=== PATIENT | female | born 1950 | race Caucasian/White ===

== ENCOUNTER 2017-07-07 10:58 | Outpatient (CLI) | payer MEDICARE, BC ==
[2017-07-07 12:40] LABS: Hemoglobin 13.9 g/dL (12.0-16.0); Mean Corpuscular HGB CONC 32.2 g/dL (32.0-36.0); Mean Corpuscular Hemoglobin 30.3 pg (27.0-31.0); Mean Corpuscular Volume 94.3 fl (81.0-99.0); Mean Platelet Volume 7.6 fL (7.4-10.4); Platelet Count 270 thou/uL (130-400); RBC Distribution Width 11.9 % (11.5-14.5); Red Blood Cell (RBC) Count 4.59 mill/uL (4.20-5.40); White Blood Cell (WBC) Count 5.4 thou/uL (4.8-10.8)
[2017-07-07 12:47] LABS: PTT 27.9 SEC (22.9-36.1)
[2017-07-07 12:51] LABS: INR-International Normal Ratio 0.9; Prothrombin Time 12.5 SEC (12.0-14.7)
[2017-07-07 13:01] LABS: Anion Gap 12 mmol/L (10-20); BUN (Urea Nitrogen) 15 mg/dL (9.8-20.1); Calc. Creatinine Clearance 0 mL/min (70-130); Calcium 9.9 mg/dL (7.8-10.44); Carbon Dioxide 27 mmol/L (23-31); Chloride 103 mmol/L (98-107); Estimated GFR-MDRD 54; Glucose 89 mg/dL (80-115); Sodium 138 mmol/L (136-145)
--- NOTE | 2017-07-15 19:32 | EKG ---
Test Reason : Blood Pressure : / mmHG Vent. Rate : 063 BPM Atrial Rate : 063 BPM P-R Int : 136 ms QRS Dur : 084 ms QT Int : 396 ms P-R-T Axes : 067 023 -43 degrees QTc Int : 405 ms Normal sinus rhythm T wave abnormality, consider inferolateral ischemia Abnormal ECG When compared with ECG of 27-JUN-2010 12:16, T wave inversion now evident in Inferior leads T wave inversion no longer evident in Anterior leads T wave inversion now evident in Lateral leads Confirmed by KIRILL TRAVIS (2) on 07/15/2017 7:32:02 PM Referred By: NAVID Confirmed By:KIRILL TRAVIS
== END 2017-07-07 10:59 | disposition home or self-care (01) ==
LOC: LABBT 10:58
PROVIDERS: ATTEND Surgery
DX: Z01.818 Encounter for other preprocedural examination (principal); M54.16 Radiculopathy, lumbar region; M48.061 Spinal stenosis, lumbar region without neurogenic claudication
CPT/HCPCS: 80048; 85027; 85610; 85730; 93005; 93010

== ENCOUNTER 2017-07-13 08:24 | Day surgery (SDC) | payer MEDICARE, BC ==
[2017-07-07 11:34] VITALS: BMI 23.6
[2017-07-13] MEDS ORDERED: CEFAZOLIN/Water 2 GM/20 ML SYRINGE ONE (08:58)
[2017-07-13] MEDS ORDERED: Bacitracin Zinc Ointment 30 gm TUBE ONE (10:03)
[2017-07-13] MEDS ORDERED: Sodium Chloride 0.9% 10 ML ONE (10:03)
[2017-07-13] MEDS ORDERED: Thrombin 5000 UNITS/5 ML VIAL ONE (10:03)
[2017-07-13] MEDS ORDERED: Fentanyl 250 MCG/5 ML VIAL ONE (10:17)
[2017-07-13] MEDS ORDERED: Albuterol Sulfate HFA (OR ONLY) ONE (10:22)
[2017-07-13] MEDS ORDERED: Midazolam HCl 2 mg/2 ml Vial ONE ×2 (10:25→12:49)
[2017-07-13] MEDS ORDERED: HYDROmorphone 2 MG/ML VIAL SLOW IVP PRN (11:03)
[2017-07-13] MEDS ORDERED: Ondansetron HCl/PF 4 MG/2 ML Vial IVP PRN ×2 (11:03→12:56)
[2017-07-13] MEDS ORDERED: Morphine Sulfate 2 MG/ML SYRINGE SLOW IVP PRN (11:03)
[2017-07-13] MEDS ORDERED: Fentanyl 100 MCG/2 ML VIAL ONE ×3 (12:47→14:21)
[2017-07-13] MEDS ORDERED: Acetaminophen 325 MG TAB PO PRN (12:56)
[2017-07-13] MEDS ORDERED: Acetaminophen/Codeine 30-300mg Tablet PO PRN (12:56)
[2017-07-13] MEDS ORDERED: tiZANidine HCl 4 MG TAB PO PRN (12:56)
[2017-07-13] MEDS ORDERED: Fleet Enema 133 ML BOT PR PRN (12:56)
[2017-07-13] MEDS ORDERED: Mag-Al 1200 mg/1200 mg/30 ML UDCUP PO PRN (12:56)
[2017-07-13] MEDS ORDERED: Milk Of Magnesia 30 ML UDCUP PO PRN (12:56)
[2017-07-13] MEDS ORDERED: Bisacodyl 10 MG SUPP PR PRN (12:56)
[2017-07-13] MEDS: Sodium Chloride 0.9% 1,000 ML IV SCH (14:56)
--- NOTE | 2017-07-13 15:12 | OP ---
OR: 12 SURGEON: Dominic Ahuja M.D. SEISMIC PROSPECTING OBSERVER: Pepe Bal PA-C. PREPROCEDURE DIAGNOSES: Multilevel lumbar stenosis with left-sided S1 radiculopathy as well with his tory of right-sided L5-S1 surgery at outside institution. POSTPROCEDURE DIAGNOSES: Multilevel lumbar stenosis with left-sided S1 radiculopathy as well with hi story of right-sided L5-S1 surgery at outside institution. PROCEDURE PERFORMED: 1. L3-L4, L4-L5 laminectomies, partial facetectomies and foraminotomies over the L3, L4, L5 nerve ro ots. 2. Left L5-S1 hemilaminotomy, foraminotomy for decompression of left S1 nerve root. DESCRIPTION OF PROCEDURE: After informed consent was obtained from the patient, the patient brought to OR 12. Proper patient pause and identification was carried out. She was placed under excellent g eneral endotracheal anesthesia and positioned prone on the operating room table. All appropriate poi nts were padded. We identified the prior midline L5-S1 wound and this region was sterilely cleansed, prepared, and draped. The wound was drawn out and extended superiorly to encompass the L3-L5 segmen ts. This region was sterilely cleansed, prepared, and draped and proper patient pause and identifica tion was carried out. The wound was then opened with a combination of sharp, monopolar and blunt dis section, and the L3, L4, L5, and left-sided L5-S1 segments were exposed. Localization film confirmed our area of interest. We then performed an L3, L4, and L4-L5 laminectomies, partial facetectomies a nd foraminotomies with excellent decompression of the L3, L4, and L5 nerve roots bilaterally. Then w orking over the left L5-S1 segment hemilaminotomy, foraminotomy was performed. I did not feel it nec essary to remove any disk material. We had excellent decompression at the conclusion of the surgery of the L3, L4, and L5 nerve roots bilaterally and the left S1 nerve root. She had prior right L5-S1 surgery. Copious irrigation occurred. Hemostasis was maximized throughout. The wound was then clos ed in anatomic layers. There was no CSF leak and the patient then emerged from anesthesia.
[2017-07-13] MEDS ORDERED: Ondansetron HCl/PF 4 MG/2 ML Vial ONE (15:37)
[2017-07-13] MEDS ORDERED: Glycopyrrolate 0.2 MG/ML 5 ML SYRINGE ONE (15:37)
[2017-07-13] MEDS ORDERED: Vecuronium 10 MG VIAL ONE (15:37)
[2017-07-13] MEDS ORDERED: Lidocaine 1% PF 5 ML VIAL ONE (15:37)
[2017-07-13] MEDS ORDERED: PHENYLEPHRINE-NS 100 MCG/ML 10 ML SYRINGE ONE (15:37)
[2017-07-13] MEDS ORDERED: Dexamethasone 20 MG/5 ML VIAL ONE (15:37)
[2017-07-13] MEDS ORDERED: ePHEDrine/0.9% NaCl/PF SYRINGE 50 mg/10 ml ONE (15:37)
[2017-07-13] MEDS ORDERED: Propofol 200 MG/20 ML VIAL ONE (15:37)
[2017-07-13] MEDS ORDERED: tiZANidine HCl 4 MG TAB ONE (15:53)
[2017-07-13] MEDS ORDERED: Morphine 5 mg/5 ml in 0.9% NaCl/PF SYRINGE SLOW IVP PRN (17:32)
[2017-07-13] MEDS: CEFAZOLIN/Water 2 GM/20 ML SYRINGE SLOW IVP SCH (17:41)
[2017-07-13] MEDS: HYDROcodone/Acetaminophen 7.5/325 mg Tablet PO PRN ×2 (18:49→22:58)
[2017-07-13] MEDS ORDERED: Gabapentin 300 MG CAP PO SCH (21:00)
[2017-07-13] MEDS ORDERED: traZODone HCl 50 MG TAB PO SCH (21:00)
[2017-07-13] MEDS ORDERED: Atorvastatin Calcium 20 MG TAB PO SCH (21:00)
[2017-07-14] MEDS: CEFAZOLIN/Water 2 GM/20 ML SYRINGE SLOW IVP SCH (01:05)
[2017-07-14] MEDS: traMADol HCl 50 MG TAB PO PRN ×2 (03:09→09:14)
[2017-07-14] MEDS: Sodium Chloride 0.9% 1,000 ML IV SCH (04:41)
[2017-07-14 07:58] VITALS: BP 93/62; TEMP 98.3
[2017-07-14] MEDS ORDERED: Multivit, Therapeutic 1 TAB PO SCH (09:00)
[2017-07-14] MEDS ORDERED: MSM PO SCH (09:00)
[2017-07-14] MEDS ORDERED: CHONDROITIN A PO SCH (09:00)
[2017-07-14] MEDS ORDERED: Loratadine 10 MG TAB PO SCH (09:00)
[2017-07-14] MEDS ORDERED: GLUCOSAMINE PO SCH (09:00)
--- NOTE | 2017-07-14 09:10 | PRG ---
DATE OF SERVICE: 07/14/2017 Ms. Bowie is doing on postoperative day 1 from lumbar decompression. We went over intraoperative an d postoperative issues and she is already ambulating with improvement in her leg pain. We will plan on dismissal.
== END 2017-07-14 09:41 | disposition home or self-care (01) ==
LOC: SDC 08:24 → 3SE 13:23 → SDC 07-14 09:41
PROVIDERS: ATTEND Surgery
PROC: 0ST20ZZ Resection of Lumbar Vertebral Disc, Open Approach (ICD-10-PCS; principal; 2017-07-13)
PROC: 01NB0ZZ Release Lumbar Nerve, Open Approach (ICD-10-PCS; 2017-07-13)
DX: M48.061 Spinal stenosis, lumbar region without neurogenic claudication (principal); M54.16 Radiculopathy, lumbar region; Z79.899 Other long term (current) drug therapy; Z88.8 Allergy status to other drugs, medicaments and biological substances; Z91.048 Other nonmedicinal substance allergy status; Z98.890 Other specified postprocedural states; Z90.710 Acquired absence of both cervix and uterus
CPT/HCPCS: 76001; 96374; A4216; J1100; J2001; J2250; J2270; J2405; J2704; J3010; J3370; J3490

== ENCOUNTER 2017-12-02 12:28 | Outpatient (CLI) | payer MEDICARE, BC | END 2017-12-02 12:29 | disposition home or self-care (01) | LOC: BICMAMMO 12:28 | PROVIDERS: ATTEND Obstetrics & Gynecology | DX: R92.8 Other abnormal and inconclusive findings on diagnostic imaging of breast (principal) | CPT/HCPCS: 77066; G0279 ==

== ENCOUNTER 2018-03-09 08:49 | Observation (INO) | payer MEDICARE, BC ==
[2018-03-09] MEDS ORDERED: Nitroglycerin 2% Ointment 1 INCH/1 GM Packet ONE (09:05)
[2018-03-09 09:18] LABS: #Eosinphils 0.1 thou/uL (0.0-0.7); #Lymphocytes 0.8 thou/uL (1.20-3.40); #Monocytes 0.4 thou/uL (0.11-0.59); #Neutrophils 7.1 thou/uL (1.40-6.50); %Basophils 0.4 % (0.0-1.0); %Eosinophils 1.4 % (0.0-10.0); %Lymphocytes 9.3 % (21.0-51.0); %Monocytes 4.2 % (0.0-10.0); %Neutrophils 84.8 % (42.0-75.0); Hemoglobin 15.7 g/dL (12.0-16.0); Mean Corpuscular HGB CONC 32.5 g/dL (32.0-36.0); Mean Corpuscular Hemoglobin 29.4 pg (27.0-31.0); Mean Corpuscular Volume 90.4 fL (78.0-98.0); Mean Platelet Volume 8.1 fL (7.4-10.4); Platelet Count 238 thou/uL (130-400); RBC Distribution Width 11.1 % (11.5-14.5); Red Blood Cell (RBC) Count 5.35 mill/uL (4.20-5.40); White Blood Cell (WBC) Count 8.4 thou/uL (4.8-10.8)
[2018-03-09 09:29] LABS: ALT (SGPT) 20 U/L (8-55); AST (SGOT) 19 U/L (5-34); Albumin 4.3 g/dL (3.4-4.8); Alkaline Phosphatase 62 U/L (40-150); Anion Gap 12 mmol/L (10-20); BUN (Urea Nitrogen) 14 mg/dL (9.8-20.1); Bilirubin, Total 0.7 mg/dL (0.2-1.2); Calc. Creatinine Clearance 0 mL/min (70-130); Calcium 9.8 mg/dL (7.8-10.44); Carbon Dioxide 27 mmol/L (23-31); Chloride 105 mmol/L (98-107); Estimated GFR-MDRD 75; Globulin 2.5 g/dL (2.4-3.5); Glucose 119 mg/dL (80-115); Lipase 26 U/L (8-78); Protein, Total 6.8 g/dL (6.0-8.3); Sodium 140 mmol/L (136-145)
[2018-03-09 09:31] LABS: CKMB 0.6 ng/mL (0-6.6); Troponin I Less than 0.010 ng/mL (< 0.028)
[2018-03-09] MEDS ORDERED: Lidocaine Viscous Sol 2% 15 ml UD Cup ONE (09:47)
[2018-03-09] MEDS ORDERED: Mag-Al Plus 1200 MG/1200 MG/120 MG/30 ML UDCUP ONE (09:47)
--- NOTE | 2018-03-09 09:55 | RAD ---
PORTABLE CHEST ONE VIEW: History: 68-year-old female with history of chest pain and epigastric pain with pain radiating into the jaw an d arm. FINDINGS: Heart size is within normal limits. The lungs are clear. No pneumonia, edema, or pleural effusion. IMPRESSION: No acute intrathoracic disease. Stable from prior study. Atherosclerosis of the aorta. POS: [facility]
[2018-03-09] MEDS ORDERED: Ibuprofen 200 MG TAB ONE (10:40)
[2018-03-09 12:22] LABS: Troponin I Less than 0.010 ng/mL (< 0.028)
[2018-03-09] MEDS ORDERED: Ondansetron ODT 4 MG TAB PO PRN (12:44)
[2018-03-09] MEDS ORDERED: Ondansetron HCl/PF 4 MG/2 ML Vial IVP PRN ×2 (12:44→13:23)
[2018-03-09 12:56] VITALS: BMI 25.0
[2018-03-09] MEDS ORDERED: Nitroglycerin 0.4 MG TAB (25 Tab Bottle) PO PRN (13:21)
[2018-03-09] MEDS ORDERED: Mag-Al 1200 mg/1200 mg/30 ML UDCUP PO PRN (13:23)
[2018-03-09] MEDS ORDERED: Milk Of Magnesia 30 ML UDCUP PO PRN (13:23)
[2018-03-09] MEDS ORDERED: Loperamide HCl 2 MG CAP PO PRN (13:23)
[2018-03-09] MEDS ORDERED: Acetaminophen 325 MG TAB PO PRN (13:23)
[2018-03-09] MEDS ORDERED: Senokot 8.6 MG TAB PO PRN (13:23)
[2018-03-09] MEDS ORDERED: Zolpidem Tartrate 5 MG TAB PO PRN (13:23)
--- NOTE | 2018-03-09 13:47 | SS ---
PRIMARY CARE PHYSICIAN: Yazan Self M.D. REASON FOR ADMISSION: Chest pain. HISTORY OF PRESENT ILLNESS: A 68-year-old female who has underlying history of hypertension and dyslipidemia, who presented to emergency room at [place] with the complaint of chest pain. The patient reports that last night she was having liquidy diarrhea several times. She started diarrhea at 2:00 a.m. until 7:00 a.m. She had several times liquidy diarrhea with lower abdominal crampy discomfort. During that period, the patient was also having chest pain, which was substernal and epigastric location. Chest pain was radiating to left shoulder as well as right ear. She was feeling dull ache and pressure sensation. She denies any vomiting, but she was feeling nauseated. She did not have any diaphoresis, palpitation, dizziness or syncope. She did not have any fever or chills. There was no relation of chest pain with food, respiration or activity. She denies any exertional related chest pain, palpitation. She denies any similar problem in past. The patient reports that for last several months, she was intermittently feeling chest tightness, which she was attributing to her grief sensation after her daughter who from a motor accident in May. She did not have any cardiac workup done recently. She reports that more than 2 years ago her primary care physician did a treadmill stress test in his office, which was reportedly normal. The patient was evaluated at the [place] emergency room where her electrocardiogram was normal. Routine blood tests including CBC, BMP and cardiac enzymes were negative. The patient is transferred to our hospital for rule out acute coronary syndrome. REVIEW OF SYSTEMS: The following complete review of systems was negative, unless otherwise mentioned in the HPI or below: Constitutional: Weight loss or gain, ability to conduct usual activities. Skin: Rash, itching. Eyes: Double vision, pain. ENT/Mouth: Nose bleeding, neck stiffness, pain, tenderness. Cardiovascular: Palpitations, dyspnea on exertion, orthopnea. Respiratory: Shortness of breath, wheezing, cough, hemoptysis, fever or night sweats. Gastrointestinal: Poor appetite, abdominal pain, heartburn, nausea, vomiting, constipation, or diarrhea. Genitourinary: Urgency, frequency, dysuria, nocturia. Musculoskeletal: Pain, swelling. Neurologic/Psychiatric: Anxiety, depression. Allergy/Immunologic: Skin rash, bleeding tendency. Please see my HPI for pertinent positive and negative. All other review of systems reviewed and negative except as mentioned in the HPI. PAST MEDICAL HISTORY: History of hypertension. The patient was on a couple of different antihypertensive medications, but she is no longer taking blood pressure medications since she lost 40-pound weight intentionally. Dyslipidemia , on statin therapy. Asthma, mild, intermittent. Osteoarthritis. PAST SURGICAL HISTORY: Lump removed from back, hysterectomy. PAST PSYCHIATRIC HISTORY: Anxiety and depression. SOCIAL HISTORY: The patient is and lives at home with her . No history of tobacco, alcohol or illicit drug abuse. FAMILY HISTORY: Strongly positive for coronary artery disease to her brothers as well as mother. One brother had early CABG as well as one brother had several stent and mother diagnosed with a CAD as well. Her mother is . ALLERGIES: COMPAZINE. CURRENT HOME MEDICATIONS: Trazodone 100 mg p.o. daily, Zocor 40 mg p.o. at bedtime, aspirin 81 mg p.o. daily, Xanax 1 mg p.o. daily, Centrum Silver 1 tablet p.o. daily, gabapentin 300 mg p.o. daily, glucosamine sulfate 1000 mg p.o. daily, cetirizine 10 mg p.o. daily. EMERGENCY ROOM COURSE: The patient was given morphine, IV fluid, GI cocktail, Motrin 400 mg, nitropatch and aspirin. PHYSICAL EXAMINATION: VITAL SIGNS: On arrival, blood pressure 172/88, pulse 92, respiratory rate 20, temperature 98.2, saturation 96% on room air, weight 66.8 kilograms. GENERAL: The patient is currently alert, oriented, in no acute distress. HEAD: Normocephalic, atraumatic. EYES: Pupils round and reactive to light. Extraocular muscle intact. ENT: Oropharynx within normal limits. Moist mucous membrane. No oral lesion, no pharyngeal erythema, no exudate. NECK: Supple. No JVD, no thyromegaly, no carotid bruit. No jugular venous distention. LUNGS: Clear to auscultation without any rhonchi or rales. CARDIAC: S1, S2 regular. No murmur, no gallop, no rub. ABDOMEN: Soft, bowel sounds present, nontender, nondistended. No organomegaly , no mass, no suprapubic tenderness. BACK: Unremarkable. No CVA tenderness. EXTREMITIES: Upper extremities, passive movement of all joints are normal. Lower extremities, no edema, no calf tenderness. Good distal pulsation. SKIN: No skin rash. HEMATOLOGIC: No lymphadenopathy. PSYCHIATRIC: Normal affect. NEUROLOGIC: Nonfocal examination. SIGNIFICANT LABORATORY DATA: EKG showing normal sinus rhythm, Q-wave in lead III and AVF. Chest x-ray based on my review, no acute cardiopulmonary process. CBC, WBC 8.4, hemoglobin 15.7, platelet 238,000. BMP, sodium 140, potassium 4.0, chloride 105, carbon dioxide 27, anion gap 12, BUN 14, creatinine 0.76, glucose 119, calcium 9.8. LFT, AST 19, ALT 20, alkaline phosphatase 62, albumin 4.3, lipase 26. Cardiac enzymes negative x3. ASSESSMENT AND PLAN: 1. Chest pain, recurrent. Current chest pain description is atypical. She has 3 risk factors for coronary artery disease. Based on that risk factor profile, her probability of coronary artery disease is moderate. The patient will need further evaluation. Her electrocardiogram is negative and her cardiac enzyme are negative. We will do stress test today if possible. The patient already received aspirin in the emergency room and currently the patient is chest pain free. If stress test is negative, then we will consider discharging her home later on today. In that case, the patient will need to continue Pepcid 20 mg p.o. b.i.d. [id number] basis. 2. Hypertension, was high when she went to emergency room because of stress, but currently blood pressure is well controlled. The patient is advised to follow with primary care physician. 3. Dyslipidemia. Continue Zocor 40 mg p.o. at bedtime. 4. Anxiety and depression. Continue Xanax 0.5 mg p.o. at bedtime, trazodone 100 mg p.o. at bedtime. 5. Deep venous thrombosis prophylaxis not needed because we are expecting discharge in 24 hours. 6. Gastrointestinal prophylaxis, Pepcid 20 mg p.o. b.i.d. 7. Code status: The patient is full code. The patient's is surrogate decision maker. Disposition plan based on stress test result, likely within 24 hours, maybe possibly today. DATE OF ADMISSION: 03/09/2018 DATE OF DISCHARGE: 03/09/2018 DISCHARGE DISPOSITION: Home. PRIMARY DISCHARGE DIAGNOSIS: Chest pain, ruled out acute coronary syndrome. SECONDARY DISCHARGE DIAGNOSES: Hypertension, dyslipidemia, anxiety and depression. PRIMARY PROCEDURES/OPERATIONS: None. RADIOLOGICAL INVESTIGATION: Chest x-ray is normal. Stress test is pending. SIGNIFICANT LABORATORY DATA: Please see above. DISCHARGE PLAN: Post hospital, the patient will follow with primary care physician in 1 week. HOSPITAL COURSE: Please see my HPI. This patient was transferred from [place] ER for chest pain workup. Her chest pain description was atypical. Her probability of coronary artery disease was low to moderate and that is why we did stress test to rule out underlying ischemia. If stress test is negative , then the patient is medically stable for discharge later on today. STRESS TEST REVIEWED AND NEGATIVE, RESULT DISCUSSED TO PT JORDAN
--- NOTE | 2018-03-09 16:24 | NM ---
NUCLEAR MEDICINE CARDIAC MYOCARDIAL PERFUSION SPECT EJECTION FRACTION STUDY WALL MOTION CINE: 03/09/18 HISTORY: 68-year-old female with dyslipidemia presents with chest pain. TECHNIQUE: Number of days: One Rest study: Tc99m sestamibi (Cardiolite) dose: 11.0 mCi Exercise stress: treadmill. Stress study: Tc99m sestamibi (Cardiolite) dose: 32.3 mCi FINDINGS: CARDIAC (MYOCARDIAL PERFUSION) SPECT There are no reversible myocardial perfusion defects. EJECTION FRACTION STUDY EF = 77% WALL MOTION CINE Normal. IMPRESSION: No evidence of reversible ischemia. ELTON Catalan POS: [facility]
[2018-03-09 17:31] LABS: Cardiac Risk 2.4 (Less than 4.5)
[2018-03-09 17:32] LABS: Troponin I Less than 0.010 ng/mL (< 0.028)
[2018-03-09 19:10] VITALS: BP 146/77; TEMP 98.8
[2018-03-09] MEDS ORDERED: Simvastatin 40 MG TAB PO SCH (21:00)
[2018-03-09] MEDS ORDERED: Gabapentin 300 MG CAP PO SCH ×2 (21:00)
[2018-03-09] MEDS ORDERED: Famotidine 20 MG TAB PO SCH (21:00)
[2018-03-09] MEDS ORDERED: ALPRAZolam 0.5 MG TAB PO SCH (21:00)
[2018-03-09] MEDS ORDERED: Atorvastatin Calcium 20 MG TAB PO SCH (21:00)
[2018-03-09] MEDS ORDERED: Non-Formulary Item 1 EACH (Trazodone Hcl [Trazodone Hcl] 1 TAB) PO SCH (21:00)
[2018-03-10] MEDS ORDERED: Loratadine 10 MG TAB PO SCH (09:00)
[2018-03-10] MEDS ORDERED: GLUCOSAMINE CHONDROITIN MSM PO SCH (09:00)
[2018-03-10] MEDS ORDERED: Cetirizine HCl 10 MG TAB PO SCH (09:00)
[2018-03-10] MEDS ORDERED: Aspirin 325 MG TAB PO SCH (09:00)
[2018-03-10] MEDS ORDERED: Non-Formulary Item 1 EACH (Multivitamin [Multi-Vitamin Daily] 1 TAB) PO SCH (09:00)
[2018-03-10] MEDS ORDERED: Multivit, Therapeutic 1 TAB PO SCH (09:00)
== END 2018-03-09 21:00 | disposition home or self-care (01) ==
LOC: SCSER 08:49 → 2SW 12:02
PROVIDERS: ADMIT Internal Medicine; ATTEND Internal Medicine
DX: R07.89 Other chest pain (principal); I10 Essential (primary) hypertension; E78.5 Hyperlipidemia, unspecified; F41.8 Other specified anxiety disorders; Z88.8 Allergy status to other drugs, medicaments and biological substances; Z79.82 Long term (current) use of aspirin; Z79.02 Long term (current) use of antithrombotics/antiplatelets; Z79.899 Other long term (current) drug therapy
CPT/HCPCS: 71045; 78452; 80053; 80061; 82553; 83690; 84484 ×2; 85025; 93005; 93017; 94760; 96361; 96374; 96375; 99285; A9500; 36415; J2270; J2405

== ENCOUNTER 2018-12-06 15:10 | Outpatient (CLI) | payer MEDICARE, BC ==
--- NOTE | 2018-12-06 16:03 | MMO ---
Bilateral MAMMO Bilat Screen [facility]DI+BUD. CLINICAL HISTORY: Patient is 68 years old and is seen for screening. The patient has no family history of breast cancer. The patient has no personal history of cancer. The patient has a history of right Ultrasound Guided Core Biopsy in September,. VIEWS: The views performed were: bilateral craniocaudal with tomosynthesis and bilateral mediolateral oblique with tomosynthesis. FILMS COMPARED: The present examination has been compared to prior imaging studies performed at [facility] on 03/12/2015, 09/16/2016, 09/18/2016 and 12/02/2017. MAMMOGRAM FINDINGS: There are scattered fibroglandular densities. Finding 1: There are stable benign appearing calcifications seen in both breasts. Finding 2: There are stable focal asymmetries seen in both breasts. Finding 3: There is a stable biopsy clip seen in the right breast. There are no suspicious masses, suspicious calcifications, or new areas of architectural distortion. IMPRESSION: THERE IS NO MAMMOGRAPHIC EVIDENCE OF MALIGNANCY. A ROUTINE FOLLOW-UP MAMMOGRAM IN 1 YEAR IS RECOMMENDED. THE RESULTS OF THIS EXAM WERE SENT TO THE PATIENT. ACR BI-RADS Category 2 - Benign finding MAMMOGRAPHY NOTE: 1. A negative mammogram report should not delay a biopsy if a dominant of clinically suspicious mass is present. 2. Approximately 10% to 15% of breast cancers are not detected by mammography. 3. Adenosis and dense breasts may obscure an underlying neoplasm.
== END 2018-12-06 15:11 | disposition home or self-care (01) ==
LOC: BICMAMMO 15:10
PROVIDERS: ATTEND Obstetrics & Gynecology
DX: Z12.31 Encounter for screening mammogram for malignant neoplasm of breast (principal)
CPT/HCPCS: 77063; 77067

== ENCOUNTER 2020-01-02 14:17 | Outpatient (CLI) | payer MEDICARE, BC ==
--- NOTE | 2020-01-02 16:21 | MMO ---
Bilateral MAMMO Bilat Screen DDI+BUD. CLINICAL HISTORY: Patient is 69 years old and is seen for screening. The patient has no family history of breast cancer. The patient has no personal history of cancer. The patient has a history of right Ultrasound Guided Core Biopsy in September, - benign. VIEWS: The views performed were: bilateral craniocaudal with tomosynthesis and bilateral mediolateral oblique with tomosynthesis. FILMS COMPARED: The present examination has been compared to prior imaging studies performed at [facility] on 09/16/2016, 09/18/2016, 12/02/2017 and 12/06/2018. This study has been interpreted with the assistance of computer-aided detection. MAMMOGRAM FINDINGS: There are scattered fibroglandular densities. Finding 1: There is a stable biopsy clip seen in the right breast. Finding 2: There are benign appearing calcifications seen in both breasts. There are benign scattered densities in both breasts. There are no suspicious masses, suspicious calcifications, or new areas of architectural distortion. IMPRESSION: THERE IS NO MAMMOGRAPHIC EVIDENCE OF MALIGNANCY. A ROUTINE FOLLOW-UP MAMMOGRAM IN 1 YEAR IS RECOMMENDED. THE RESULTS OF THIS EXAM WERE SENT TO THE PATIENT. ACR BI-RADS Category 2 - Benign finding MAMMOGRAPHY NOTE: 1. A negative mammogram report should not delay a biopsy if a dominant of clinically suspicious mass is present. 2. Approximately 10% to 15% of breast cancers are not detected by mammography. 3. Adenosis and dense breasts may obscure an underlying neoplasm. Reported by: NAYA WU MD Electonically Signed: [id number]
== END 2020-01-02 14:18 | disposition home or self-care (01) ==
LOC: BICMAMMO 14:17
PROVIDERS: ATTEND Family Medicine
DX: Z12.31 Encounter for screening mammogram for malignant neoplasm of breast (principal); Z91.89 Other specified personal risk factors, not elsewhere classified
CPT/HCPCS: 77063; 77067

== ENCOUNTER 2020-12-23 09:02 | Outpatient (CLI) | payer MEDICARE, BC | END 2020-12-23 09:03 | disposition home or self-care (01) | PROVIDERS: ATTEND Internal Medicine | DX: R13.10 Dysphagia, unspecified (principal); K21.9 Gastro-esophageal reflux disease without esophagitis | CPT/HCPCS: 74230 ==

== ENCOUNTER 2022-12-15 17:26 | Emergency (ER) | payer MEDICARE, BC ==
[2022-12-15 19:29] LABS: Bacteria/HPF None Seen HPF (None Seen); Bilirubin Negative (Negative); Blood, Urine 2+ (Negative); CAUTI Indications for Culture Urological Procedure; Clarity Clear (Clear); Glucose, Urine (Dipstick) Normal (Negative); Ketone, Urine Negative (Negative); Leukocyte 25 Leu/uL (Negative); Mucous/LPF Rare LPF (<2+); Nitrite Negative (Negative); Protein, Urine (Dipstick) 10 mg/dL (Neg-Trace); RBC/HPF 21-50 HPF (0-3); Specific Gravity, Urine 1.011 (1.002-1.036); Squamous Epithelial None Seen HPF (0-3); Urobilinogen Normal mg/dL (Less than 2); WBC/HPF 0-3 HPF (0-3); pH, Urine 5.5 (5.0-9.0)
[2022-12-15 19:30] LABS: Urine Culture Reflex Yes Yes
== END 2022-12-15 22:34 | disposition home or self-care (01) ==
LOC: ERS 17:26
DX: T83.091A Other mechanical complication of indwelling urethral catheter, initial encounter (principal); K59.00 Constipation, unspecified; I10 Essential (primary) hypertension; E78.00 Pure hypercholesterolemia, unspecified; Z79.899 Other long term (current) drug therapy
CPT/HCPCS: 74018; 81001; 87086

== ENCOUNTER 2023-01-14 14:29 | Outpatient (CLI) | payer MEDICARE, BC ==
[2023-01-14 16:41] LABS: Hemoglobin 11.8 g/dL (12.0-15.5); Mean Corpuscular HGB CONC 32.6 g/dL (32.0-36.0); Mean Corpuscular Hemoglobin 29.4 pg (27.0-33.0); Mean Corpuscular Volume 90.3 fl (81.6-98.3); Mean Platelet Volume 9.8 fl (7.4-10.4); Platelet Count 325 10x3/uL (150-450); RBC Distribution Width 13.9 % (11.5-14.5); Red Blood Cell (RBC) Count 4.01 10x6/uL (3.90-5.03); White Blood Cell (WBC) Count 7.1 10x3/uL (3.5-10.5)
[2023-01-14 16:53] LABS: Anion Gap 9 mmol/L (10-20); BUN (Urea Nitrogen) 15 mg/dL (9.8-20.1); Calc. Creatinine Clearance 0 mL/min (70-130); Calcium 8.6 mg/dL (7.8-10.44); Carbon Dioxide 30 mmol/L (23-31); Chloride 103 mmol/L (98-107); Estimated GFR 75; Glucose 88 mg/dL (83-110); INR-International Normal Ratio 0.9; PTT 23.9 sec (22.0-33.0); Potassium 4.4 mmol/L (3.5-5.1); Prothrombin Time 9.8 sec (9.5-12.1); Sodium 138 mmol/L (136-145)
== END 2023-01-14 14:30 | disposition home or self-care (01) ==
LOC: LABBT 14:29
PROVIDERS: ATTEND Surgery
DX: Z01.812 Encounter for preprocedural laboratory examination (principal); M51.16 Intervertebral disc disorders with radiculopathy, lumbar region; M48.02 Spinal stenosis, cervical region
CPT/HCPCS: 80048; 85027; 85610; 85730

== ENCOUNTER 2023-02-25 10:44 | Outpatient (CLI) | payer MEDICARE, BC | END 2023-02-25 10:45 | disposition home or self-care (01) | LOC: SCSRAD 10:44 | PROVIDERS: ATTEND Surgery | DX: M50.30 Other cervical disc degeneration, unspecified cervical region (principal); M47.812 Spondylosis without myelopathy or radiculopathy, cervical region; Z98.1 Arthrodesis status; M89.38 Hypertrophy of bone, other site | CPT/HCPCS: 72040 ==